=== PATIENT | female | born 1975 | race Caucasian/White ===

== ENCOUNTER 2016-12-13 11:04 | Outpatient (CLI) | payer OTHER ==
[2016-12-13 17:08] LABS: ALT (SGPT) 10 U/L (0-55); AST (SGOT) 12 U/L (5-34); Albumin 4.1 g/dL (3.5-5.0); Alkaline Phosphatase 52 U/L (40-150); Anion Gap 13 mmol/L (10-20); BUN (Urea Nitrogen) 11 mg/dL (7.0-18.7); Bilirubin, Total 0.4 mg/dL (0.2-1.2); Calc. Creatinine Clearance 0 mL/min (70-130); Calcium 9.6 mg/dL (7.8-10.44); Carbon Dioxide 23 mmol/L (22-29); Chloride 107 mmol/L (98-107); Cholesterol 154 mg/dL (< 200 Desired); Estimated GFR-MDRD 81; Globulin 3.2 g/dL (2.4-3.5); Glucose 91 mg/dL (70-105); HDL Cholesterol 31 mg/dL (>60 Neg Risk); LDL Cholesterol, Calculated 89 mg/dL; Potassium 4.8 mmol/L (3.5-5.1); Protein, Total 7.3 g/dL (6.0-8.3); Sodium 138 mmol/L (136-145); Triglycerides 169 mg/dL (Less than 150)
[2016-12-13 17:27] LABS: HCG, Total Quant Less than 1.20 mIU/mL (See Ranges); Thyroid Stimulating Hormone 0.8703 uIU/mL (0.35-4.94)
[2016-12-13 21:52] LABS: #Basophils 0.1 thou/uL (0.0-0.2); #Eosinphils 0.1 thou/uL (0.0-0.7); #Lymphocytes 2.1 thou/uL (1.20-3.40); #Monocytes 0.7 thou/uL (0.11-0.59); #Neutrophils 5.3 thou/uL (1.40-6.50); %Basophils 0.7 % (0.0-1.0); %Eosinophils 1.4 % (0.0-10.0); %Lymphocytes 25.4 % (21.0-51.0); %Monocytes 8.6 % (0.0-10.0); %Neutrophils 63.9 % (42.0-75.0); Hemoglobin 11.6 g/dL (12.0-16.0); MDiff Complete? YES; Mean Corpuscular HGB CONC 31.3 g/dL (32.0-36.0); Mean Corpuscular Hemoglobin 24.4 pg (27.0-31.0); Mean Corpuscular Volume 78.2 fl (81.0-99.0); Mean Platelet Volume 7.9 fL (7.4-10.4); PLT Morphology Comment Appears Increased; Platelet Count 612 thou/uL (130-400); Polychromasia SLIGHT = 2-3 cells (100X) (0-2/hpf); RBC Distribution Width 12.7 % (11.5-14.5); Red Blood Cell (RBC) Count 4.76 mill/uL (4.20-5.40); White Blood Cell (WBC) Count 8.4 thou/uL (4.8-10.8)
== END 2016-12-13 11:05 ==
LOC: LABLEX 11:04
PROVIDERS: ATTEND Family Medicine
DX: Z00.00 Encounter for general adult medical examination without abnormal findings (principal)
CPT/HCPCS: 80053; 80061; 83001; 84146; 84443; 84702; 85025; 87624

== ENCOUNTER 2017-01-17 12:32 | Outpatient (CLI) | payer OTHER ==
--- NOTE | 2017-01-17 21:33 | RAD ---
LUMBAR SPINE THREE VIEWS 01/17/17 No definite acute fracture was seen. The disc spaces are normal in height. I do not see significant arthritic changes. The superior end plate of L1 was perhaps slightly irregular, but not enough to joseph ggest an acute injury here. There is probably a Schmorl's node in the superior end plate of T12. Unl ess there was pain in that region, the findings can probably be taken as more likely old than new. I f there was pain in that area, then further scanning would be in order. The SI joints were symmetric al. IMPRESSION: No definite acute finding. POS: HOME
== END 2017-01-17 12:33 | disposition home or self-care (01) ==
LOC: BURRAD 12:32
PROVIDERS: ATTEND Family Medicine
DX: M54.42 Lumbago with sciatica, left side (principal)
CPT/HCPCS: 72100